=== PATIENT | male | born 1960 | race Caucasian/White ===

== ENCOUNTER 2017-06-02 11:30 | Emergency (ER) | payer SELFPAY ==
--- NOTE | 2017-06-02 12:39 | UC ---
Lower Extremity/Ankle HPI - HPI Summary HPI Summary: worsening pain and swelling in left toe---no known injury - History of Current Complaint Chief Complaint: UCLowerExtremity Stated Complaint: FOOT COMPLAINT Time Seen by Provider: 06/02/17 12:38 Hx Obtained From: Patient Hx From Patient Unobtainable Due To: Altered Mental Status - 12 hours Onset/Duration: Gradual Onset, Lasting Days Severity Initially: Moderate Severity Currently: Severe Pain Intensity: 10 Pain Scale Used: 0-10 Numeric Aggravating Factor(s): Standing, Ambulation Alleviating Factor(s): Nothing Able to Bear Weight: Yes - Allergies/Home Medications Allergies/Adverse Reactions: Allergies Allergy/AdvReac Type Severity Reaction Status Date / Time No Known Allergies Allergy Verified 06/02/17 12:11 PMH/Surg Hx/FS Hx/Imm Hx Previously Healthy: Yes - "does not go to doctor" - Surgical History Surgical History: None - Family History Known Family History: Positive: None - Social History Occupation: Employed Full-time - [employer]--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 [place] Lives: Alone Alcohol Use: None Substance Use Type: None Smoking Status (MU): Never Smoked Tobacco Review of Systems Constitutional: Negative Skin: Negative, Other - open and draing area on left toe Eyes: Negative ENT: Negative Respiratory: Negative Cardiovascular: Negative Gastrointestinal: Negative Genitourinary: Negative Motor: Negative Neurovascular: Negative Musculoskeletal: Negative, Arthralgia - swollen red, tender left toe purulence noted under skin Neurological: Negative Psychological: Negative Is Patient Immunocompromised?: No All Other Systems Reviewed And Are Negative: Yes Physical Exam Triage Information Reviewed: Yes Appearance: Well-Appearing, No Pain Distress, Well-Nourished Vital Signs: Initial Vital Signs Temp 99.3 F 06/02/17 12:13 Pulse 102 06/02/17 12:13 Resp 20 06/02/17 12:13 BP 180/85 06/02/17 12:13 Pulse Ox 99 06/02/17 12:13 Vital Signs Reviewed: Yes Eye Exam: Normal Eyes: Positive: Conjunctiva Clear ENT Exam: Normal ENT: Positive: Normal ENT inspection, Hearing grossly normal. Negative: Nasal congestion, Nasal drainage, Trismus, Muffled/hoarse voice Neck exam: Normal Neck: Positive: Supple, Nontender, No Lymphadenopathy Respiratory Exam: Normal Respiratory: Positive: Chest non-tender, Lungs clear, Normal breath sounds, No respiratory distress, No accessory muscle use Cardiovascular Exam: Normal Cardiovascular: Positive: No Murmur, Pulses Normal, Brisk Capillary Refill, Tachycardia Musculoskeletal Exam: Other Musculoskeletal: Positive: ROM Limited @ - left great toe, Edema @ - left great toe Neurological: Positive: Alert, Muscle Tone Normal Psychological Exam: Normal Skin: Positive: Other - red, warm tender pustular formation under skin serrous purrulent draining for near left toe nail Diagnostics - Radiology No standard instances Xray Interpretation: Positive (See Comments) - Fragmentation and erroision of osteo vs communited fracture Radiology Interpretation Completed By: Radiologist Lower Extremity Course/Dx - Course Course Of Treatment: warm soaks, follow with ortho in [place] in morning as arranged, Cipro po and cultures of wound drainage - Differential Dx/Diagnosis Differential Diagnosis/HQI/PQRI: Cellulitis, Fracture (Closed), Fracture (Open) , Osteomyelitis, Sprain, Strain, Tendonitis, Tenosynovitis Provider Diagnoses: Osteomylitis of left great toe Discharge - Discharge Plan Condition: Stable Disposition: HOME Prescriptions: Ciprofloxacin TAB* [Cipro 750 MG Tab*] 750 mg PO BID #20 tab Ciprofloxacin TAB* [Cipro 750 MG Tab*] 750 mg PO BID #20 tab Patient Education Materials: Osteomyelitis (ED), Hypertension (ED), Warm Compress or Soak (ED) Forms: *Work Release Referrals: No Primary Care Phys,NOPCP [Primary Care Provider] - Additional Instructions: Follow up at [facility] [address] At 7;15am Saturday June 03, 2017 office number [phone] Please call [phone] to confirm your insurance information
--- NOTE | 2017-06-02 13:25 | RAD ---
HISTORY: Left toe infection and swelling COMPARISONS: None VIEWS: 3, Frontal, lateral, and oblique views of the first digit of the left foot FINDINGS: BONE DENSITY: Normal. BONES: There is comminuted fracture of the base of the distal phalanx of the first digit with articular extension to the interphalangeal joint. JOINTS: There is no arthropathy. ALIGNMENT: There is no dislocation. SOFT TISSUES: Unremarkable. OTHER FINDINGS: None. IMPRESSION: THERE IS A COMMINUTED FRACTURE OF THE DISTAL PHALANX OF THE FIRST DIGIT. GIVEN THE HISTORY OF INFECTION, THIS MAY REPRESENT FRAGMENTATION AND EROSION IN THE SETTING OF OSTEOMYELITIS
[2017-06-02 13:37] VITALS: BP 163/79
[2017-06-02] MEDS ORDERED: Lidocaine 1% MPF* 2 ML VIAL INJ ONE (14:04)
[2017-06-02] MEDS ORDERED: cefTRIAXone VIAL(*) 1,000 MG VIAL IM ONE (14:04)
[2017-06-02] MEDS ORDERED: Ciprofloxacin TAB* 500 MG PO ONE (14:32)
[2017-06-02] MEDS ORDERED: Ciprofloxacin TAB* 250 MG PO ONE (14:33)
== END 2017-06-02 14:55 | disposition home or self-care (01) ==
LOC: UCEAST 11:30
DX: M86.9 Osteomyelitis, unspecified (principal); B95.61 Methicillin susceptible Staphylococcus aureus infection as the cause of diseases classified elsewhere; S92.422A Displaced fracture of distal phalanx of left great toe, initial encounter for closed fracture; X58.XXXA Exposure to other specified factors, initial encounter; Y93.9 Activity, unspecified; Y92.9 Unspecified place or not applicable; R41.82 Altered mental status, unspecified
CPT/HCPCS: 87070; 87076; 87077; 87186; 87205; 87640; 87641; 90472; 99203; A9270-GY; G0463; J0696